=== PATIENT | female | born 1985 | race Caucasian/White ===

== ENCOUNTER 2016-08-11 20:20 | Emergency (ER) | payer OTHER ==
[~2016-08-11] VITALS: Ht 160 cm; Wt 56.8 kg
[~2016-08-11 20:20] MED LIST: BACTRIM,SEPT1 TABLET PO; CIPROFLOXACIN500 M1 PO; DIAZEPAM5 MG PO; DICYCLOMINE HCL10 MG PO; ERYTHROMYC1 APPLICAT BOTH EYES; FLEXERIL10 MG PO; FLEXERIL5 MG PO; GABAPENTIN800 MG PO; HYDROCODON-ACE1 EAC7 PO; ILOTYCIN1 GM LEFT EYE; KEFLEX500 MG PO; METOCLOPRAMIDE10 MG PO; MOBIC15 MG PO; MOXEZA3 ML BOTH EYES; NAPROSYN500 MG PO; NORCO 5/3251 TABLET PO; ONDANSETRON ODT8 MG PO; PANTOPRAZOLE SO40 MG PO; PEN-VEE K,VEET500 MG PO; PERCOCET 5/31 TABLET PO; PRISTIQ50 MG PO; PROMETHAZINE HC25 M1 PO; REGLAN10 MG PO; VICODIN 5-5001 EACH PO; VIGAMOX 0.60 DROP/3 LEFT EYE; ZITHROMAX Z-PA250 MG PO
[2016-08-11 21:04] LABS: HEMATOCRIT 41.7 % (36.0-46.0); MCH 29.9 PG (29.0-34.0); MCHC 33.8 G/DL (30.0-36.0); MCV 88.3 FL (83-99); MEAN PLAT.VOLUME 11.2 uM^3 (9.5-12.4); PLATELET COUNT 163 K/uL (156-360); RBC DIS.WIDTH-CV 13.8 % (11.8-14.6); RBC DIS.WIDTH-SD 43.9 % (39-53); RED BLOOD COUNT 4.72 M/uL (3.80-5.20); WHITE BLOOD COUNT 8.8 K/uL (4.1-10.2)
[2016-08-11 21:11] LABS: CHLORIDE 104 mEq/L (99-109); POTASSIUM 3.8 mEq/L (3.7-5.4); SODIUM 141 mEq/L (136-147)
[2016-08-11 21:13] LABS: GLUCOSE 104 mg/dL (70-99)
[2016-08-11 21:15] LABS: ANION GAP 12 MEQ/L (2-14)
[2016-08-11 21:17] LABS: GFR ESTIMATE (CALCULATED) > 59 mL/min/
[2016-08-11 21:18] LABS: UREA NITROGEN (BUN) 10 mg/dL (9-23)
[2016-08-11 21:47] LABS: ADD MIUA? YES; BILIRUBIN NEGATIVE; BLOOD NEGATIVE; COLOR YELLOW ((YELLOW)); GLUCOSE (STRIP) NEGATIVE; KETONES NEGATIVE; LEUKOCYTES MODERATE; NITRITE POSITIVE; PROTEIN (STRIP) NEGATIVE; SPECIFIC GRAVITY 1.014 (1.000-1.030); UROBILINOGEN 0.2 MG/DL (0.2-1.0)
[2016-08-11 21:59] LABS: BACTERIA 3+; CASTS NONE SEEN /LPF; CRYSTALS NONE SEEN; EPITHELIAL CELLS RARE; MUCUS NONE SEEN; RED BLOOD CELLS 0-5 /HPF (0-5); UCUL ADDED? YES
[2016-08-11 22:00] LABS: TOTAL BILIRUBIN 0.3 mg/dL (0.0-1.0)
[2016-08-11 22:01] LABS: ALKALINE PHOSPHATASE 79 IU/L (3-129)
[2016-08-11 22:04] LABS: DIRECT BILIRUBIN 0.2 mg/dL (0.0-0.3)
[2016-08-11 22:10] LABS: QUANTITATIVE HCG < 4.0 MIU/ML
[2016-08-11] MEDS ORDERED: BACTRIM,SEPT1 TABLET PO (22:14)
[2016-08-11 22:28] VITALS: BP 124/68
== END 2016-08-11 22:30 | disposition home or self-care (01) ==
LOC: EME → EDBD 20:20 → EME 22:30
DX: R56.9 Unspecified convulsions (principal); N39.0 Urinary tract infection, site not specified; F11.99 Opioid use, unspecified with unspecified opioid-induced disorder; F17.200 Nicotine dependence, unspecified, uncomplicated
CPT/HCPCS: 80048; 80076; 81003; 84702; 85027; 87077; 87086; 87186; 99281; 99284; J2060; J7030

== ENCOUNTER 2017-04-20 14:34 | Emergency (ER) | payer OTHER ==
[~2017-04-20] VITALS: Ht 160 cm; Wt 63.3 kg
[2017-04-20] MEDS ORDERED: PEN-VEE K,VEET500 MG PO (15:29)
[2017-04-20] MEDS ORDERED: NAPROSYN500 MG PO (15:29)
[2017-04-20 16:21] VITALS: BP 109/64
== END 2017-04-20 16:22 | disposition home or self-care (01) ==
LOC: EME 14:34
DX: K04.7 Periapical abscess without sinus (principal); K02.9 Dental caries, unspecified; S02.5XXA Fracture of tooth (traumatic), initial encounter for closed fracture
CPT/HCPCS: 99281; 99283

== ENCOUNTER 2017-09-04 12:19 | Emergency (ER) | payer OTHER ==
[~2017-09-04] VITALS: Ht 160 cm; Wt 65.3 kg
[2017-09-04] MEDS ORDERED: PEN-VEE K,VEET500 MG PO (13:27)
[2017-09-04 17:01] VITALS: BP 103/75
== END 2017-09-04 17:01 | disposition home or self-care (01) ==
LOC: EME 12:19
DX: K02.9 Dental caries, unspecified (principal); F17.200 Nicotine dependence, unspecified, uncomplicated; Z88.6 Allergy status to analgesic agent; Z88.5 Allergy status to narcotic agent; Z88.1 Allergy status to other antibiotic agents
CPT/HCPCS: 99281; 99284